=== PATIENT | male | born 1990 | race Caucasian/White ===

== ENCOUNTER 2018-09-17 13:36 | Emergency (ER) | payer MEDICAID ==
[~2018-09-17] VITALS: Ht 172.7 cm; Wt 83.5 kg
[2018-09-17 13:36] VITALS: BP 129/69
== END 2018-09-17 14:23 | disposition home or self-care (01) ==
LOC: ER 13:43
DX: F41.0 Panic disorder [episodic paroxysmal anxiety] (principal); F41.9 Anxiety disorder, unspecified
CPT/HCPCS: 99283; A4606